=== PATIENT | male | born 1960 | race Hispanic/Latino ===

== ENCOUNTER 2017-03-16 21:26 | Emergency (ER) | payer SELFPAY ==
[~2017-03-16] VITALS: Ht 162.6 cm; Wt 77.0 kg
[2017-03-16] MEDS ORDERED: LISINOPRIL20 MG PO (21:35)
[2017-03-16] MEDS ORDERED: METFORMIN500 MG PO (21:35)
[2017-03-16] MEDS ORDERED: GLIMEPIRIDE2 MG PO (21:36)
[2017-03-16] MEDS ORDERED: PRAVASTATIN SOD20 MG PO (21:36)
[2017-03-16] MEDS ORDERED: FAMVIR500 MG PO (22:27)
[2017-03-16] MEDS ORDERED: ZOVIRAX51 EX (22:27)
[2017-03-16 22:40] VITALS: BP 142/94
[2017-03-17] MEDS ORDERED: ACYCLOVIR400 MG PO (14:00)
== END 2017-03-16 22:40 | disposition home or self-care (01) | DRG 596 ==
LOC: ED 21:26
DX: B02.9 Zoster without complications (principal); I10 Essential (primary) hypertension; E11.9 Type 2 diabetes mellitus without complications; E78.5 Hyperlipidemia, unspecified

== ENCOUNTER 2020-08-23 06:57 | Emergency (ER) | payer SELFPAY ==
[~2020-08-23] VITALS: Ht 162.6 cm; Wt 65.0 kg
[~2020-08-23 06:57] MED LIST: ACYCLOVIR400 MG PO; FAMVIR500 MG PO; GLIMEPIRIDE2 MG PO; LISINOPRIL20 MG PO; METFORMIN500 MG PO; PRAVASTATIN SOD20 MG PO; ZOVIRAX51 EX
[2020-08-23] MEDS ORDERED: GLIMEPIRIDE2 MG PO (07:35)
[2020-08-23] MEDS ORDERED: HYDROCHLOROT25 MG PO (07:35)
[2020-08-23] MEDS ORDERED: LIPITOR40 M1 PO (07:35)
[2020-08-23] MEDS ORDERED: NORVASC5 M1 PO (07:36)
[2020-08-23 07:48] LABS: HEMATOCRIT 49.5 % (39.0-50.0); HEMOGLOBIN 16.9 g/dl (14.0-18.0); IMMATURE GRANULOCYTES 0.3 % (0.0-5.0); MEAN CELL VOLUME 90.2 fL CALC (80.0-100.0); MEAN CORPUSCULAR HGB 30.8 pG CALC (26.0-32.0); MEAN CORPUSCULAR HGB CONC 34.1 g/dL CAL (32.0-36.0); NEUT# 3.46 thou/uL (1.82-7.42); RED BLOOD COUNT 5.49 mill/uL (4.70-6.10); RED CELL DISTRI WIDTH 12.4 % (11.5-15.5)
[2020-08-23 08:08] LABS: ALBUMIN 4.1 g/dL (3.2-5.0); ALKALINE PHOSPHATASE 121 u/l (38-126); ANION GAP 12 (6-22 (CALC)); BILIRUBIN, TOTAL 0.4 mg/dL (0.0-1.4); BUN 14 mg/dL (9-20); BUN/CREATININE RATIO 25 (12-20 (CALC)); CARBON DIOXIDE 27 mmol/l (22-30); CHLORIDE 103 mmol/l (95-108); CREATININE 0.6 mg/dL (0.7-1.3); GFR > 60 ML/MIN (>=60 (CALC)); GFR FOR AFR.AMER. > 60 ML/MIN (>=60 (CALC)); SGOT/AST 72 u/l (17-59); SODIUM 138 mmol/l (137-146); TOTAL PROTEIN 7.3 g/dL (6.3-8.2)
[2020-08-23 08:27] VITALS: BP 156/91
== END 2020-08-23 08:45 | disposition home or self-care (01) | DRG 179 ==
LOC: ED 06:57
PROVIDERS: Family Medicine
DX: U07.1 COVID-19 (principal); R68.83 Chills (without fever); R53.83 Other fatigue; E11.9 Type 2 diabetes mellitus without complications; I10 Essential (primary) hypertension; Z79.84 Long term (current) use of oral hypoglycemic drugs

== ENCOUNTER 2023-02-10 10:44 | Emergency (ER) | payer SELFPAY ==
[2023-02-10] VITALS (15 sets, daily range): BP systolic 103–134; BP diastolic 65–87
[~2023-02-10] VITALS: Ht 162.6 cm; Wt 77.1 kg
[~2023-02-10 10:44] MED LIST changes: +HYDROCHLOROT25 MG PO; +LIPITOR40 M1 PO; +NORVASC5 M1 PO
[2023-02-10] MEDS ORDERED: BAYER ASPIRIN E81 MG PO (11:05)
[2023-02-10 11:35] LABS: BASO% 0.1 % (0-3); HEMOGLOBIN 15.1 g/dl (14.0-18.0); IMMATURE GRANULOCYTES 0.2 % (0.0-5.0); LYMPH% 2.4 % (15-41); MEAN CELL VOLUME 88.6 fL CALC (80.0-100.0); MEAN CORPUSCULAR HGB 31.3 pG CALC (26.0-32.0); MEAN CORPUSCULAR HGB CONC 35.4 g/dL CAL (32.0-36.0); MONO% 8.6 % (2-13); NEUT# 14.4 thou/uL (1.82-7.42); NEUT% 88.7 % (42-76); RED BLOOD COUNT 4.82 mill/uL (4.70-6.10); RED CELL DISTRI WIDTH 11.8 % (11.5-15.5)
[2023-02-10 11:50] LABS: ALBUMIN 4.4 g/dL (3.2-5.0); ALKALINE PHOSPHATASE 127 u/l (38-126); AMYLASE 163 u/l (30-110); BUN 28 mg/dL (9-20); BUN/CREATININE RATIO 38 (12-20 (CALC)); CARBON DIOXIDE 26 mmol/l (22-30); CREATININE 0.7 mg/dL (0.7-1.3); GFR FOR AFR.AMER. > 60 ML/MIN (>=60 (CALC)); GFR OTHER RACES > 60 ML/MIN (>=60 (CALC)); LIPASE 148 u/l (23-300); POTASSIUM 4.3 mmol/l (3.5-5.1); SGOT/AST 38 u/l (17-59); TOTAL PROTEIN 7.5 g/dL (6.3-8.2)
[2023-02-10 12:04] LABS: ANION GAP 15 (6-22 (CALC)); BILIRUBIN, TOTAL 1.4 mg/dL (0.2-1.3); CHLORIDE 90 mmol/l (95-108); HEMATOCRIT 42.7 % (39.0-50.0); SODIUM 127 mmol/l (137-146)
== END 2023-02-10 17:26 | disposition home or self-care (01) | DRG 392 ==
LOC: ED 10:44
PROVIDERS: Family Medicine
DX: K52.89 Other specified noninfective gastroenteritis and colitis (principal); I10 Essential (primary) hypertension; E11.9 Type 2 diabetes mellitus without complications; E78.00 Pure hypercholesterolemia, unspecified; Z79.84 Long term (current) use of oral hypoglycemic drugs